=== PATIENT | male | born 1955 | race Caucasian/White ===

== ENCOUNTER 2020-07-29 10:22 | Inpatient (IN) ==
[2020-07-29] MEDS ORDERED: NS 1000 ML 1,000 ML IV STA ×2 (10:41→12:39)
[2020-07-29 10:42] VITALS: BMI 18.6
[2020-07-29] MEDS ORDERED: SOLU-Medrol 125 MG VIAL IVP ONE (10:49)
[2020-07-29] MEDS ORDERED: NS 1000 ML 1,000 ML ONE ×2 (10:50→12:48)
--- NOTE | 2020-07-29 10:56 | DR.GENAD ---
HPI Time Seen Time Seen by Provider: 07/29/20 10:40 HPI Comment HPI Comment: PATIENT WITH A HISTORY OF COPD, END STAGE LIVER FAILURE, COMPLAINS OF GENERALIZED WEAKNESS, PAIN, DYSPNEA WITH A PRODUCTIVE COUGH, YELLOW SPUTUM. DENIES CHEST PAIN, FEVER, NAUSEA, EMESIS AND DIARRHEA. Complaint/Symptoms Chief Complaint Doctors Comments: GENERALIZED WEAKNESS, PRODUCTIVE COUGH, DYSPNEA, GENERALIZED PAIN COVID-19 Coronavirus risk:travel/contact w/high risk person: Yes Has patient experienced Coronavirus symptoms: Yes Coronavirus symptoms experienced: Coughing and Shortness of Breath Source History Provided: Patient and EMS Mode of Arrival Mode of Arrival: EMS Timing Onset of Chief Complaint: 07/27/20 Came on: Gradually Duration Duration: Constant Severity Severity: Moderate (DIFFICULTY BREATHING) Associated Signs and Symptoms Associated Signs and Symptoms: PROGRESSIVE DYSPNEA, COUGH, PMH PMH Past Medical History: COPD Past Surgical History: No Surgical History: Unknown Social History Do you use any recreational Drugs:: No ROS Review of Systems Constitutional: See HPI Eyes: No Symptoms Reported ENTM: No Symptoms Reported Respiratoy: See HPI and Productive Cough Cardiovascular: No Symptoms Reported Gastrointestinal/Abdominal: Abdominal Pain and Nausea Genitourinary: No Symptoms Reported Neurological: See HPI and Weakness Musculoskeletal: No Symptoms Reported Integumentary: No Symptoms Reported Hematologic/Lymphatic: No Symptoms Reported Endocrine: No Symptoms Reported Psychiatric: No Symptoms Reported All Other Systems: Reviewed and Negative PE Vital Signs Vitals: Temperature 98.2 F Pulse Rate 88 Respiratory Rate 15 Blood Pressure 149/71 O2 Sat by Pulse Oximetry 95 General Limitations: Physical Limitation General Appearance: Lethargic Head Head Exam: Normal Inspection and Atraumatic Eyes Eye exam: Normal Appearance and PERRL ENT ENT Exam: Normal Exam and Normal Oropharynx External Ear Exam: Normal External Inspection TM/Canal Exam: Bilateral: Normal Nose Exam: Normal Nose Exam Mouth Exam: Normal Inspection Throat Exam: Normal Inspection Neck Neck Exam: Normal Inspection and Full ROM Chest Chest Inspection: Normal Inspection and Symmetric Chest Wall Rise Respiratory Respiratory Exam: Normal Lung Sounds Bilat Respiratory Exam: Bilateral: Clear to Auscultation Cardiovascular Cardiovascular Exam: Regular Rate and Normal Rhythm Abdominal Exam Abdominal Exam: Normal Inspection, Normal Bowel Sounds and Tenderness (LEFT LOWER QUAD TENDERNESS) Abdominal Tenderness: LLQ Extremities Extremities Exam: Normal Inspection and Full ROM Back Back Exam: Normal Inspection and Full ROM Neurologic Neurological Exam: Oriented X3 and Other (SLIGHTLY LETHARGIC) Psychiatric Psychiatric Exam: Normal Affect and Anxious Skin Skin Exam: Warm, Dry, Intact and Normal Color MDM Differential Diagnosis Differential Diagnosis: PNEUMONIA, COVID, COPD, LIVER DISEASE, SMALL BOWEL OBSTRUCTION COURSE Treatment Treatment: IV NORMAL SALINE 200ML/HR, KCL 10MEQ IVPB OVER 1 HOURS, AFTER 2 SETS OF BLOOD CULTURES, LEVAQUIN 500MG IVPB, Reevaluation 1st: Improved Consultation Call Returned: 14:20 Consultation Comments: DISCUSSED WITH DR MELGOZA AT 1420 FOR ADMISSION ROR Labs Reviewed Laboratory Results Reviewed?: Yes Result Diagrams: 07/29/20 10:50 07/29/20 10:50 Laboratory: WBC 7.2 X10^3/uL (3.6-10.0) 07/29/20 10:50 RBC 4.23 X10^6/uL (4.7-6.0) L 07/29/20 10:50 Hgb 12.5 g/dL (13.5-18.0) L 07/29/20 10:50 Hct 35.6 % (42.0-54.0) L 07/29/20 10:50 MCV 84.2 fL (80.0-100.0) 07/29/20 10:50 MCH 29.6 pg (27.0-34.0) 07/29/20 10:50 MCHC 35.2 g/dL (33.0-35.0) H 07/29/20 10:50 RDW 14.0 % (11.6-16.5) 07/29/20 10:50 Plt Count 262 X10^3/uL (150.0-450.0) 07/29/20 10:50 MPV 7.2 fL (7.4-11.0) L 07/29/20 10:50 Neut % (Auto) 83.0 % (42.0-75.0) H 07/29/20 10:50 Lymph % (Auto) 11.0 % (21.0-51.0) L 07/29/20 10:50 [place] % (Auto) 4.4 % (0.0-13.0) 07/29/20 10:50 Eos % (Auto) 1.0 % (0.9-2.9) 07/29/20 10:50 Baso % (Auto) 0.6 % (0.2-1.0) 07/29/20 10:50 Neut # (Auto) 6.0 x10^3/uL (2.2-4.8) H 07/29/20 10:50 Lymph # (Auto) 0.8 X10^3/uL (1.3-2.9) L 07/29/20 10:50 [place] # (Auto) 0.3 x10^3/uL (0.3-0.8) 07/29/20 10:50 Eos # (Auto) 0.1 x10^3/uL (0.0-0.2) 07/29/20 10:50 Baso # (Auto) 0.0 X10^3/uL (0.0-0.1) 07/29/20 10:50 Absolute Nucleated RBC 0.0 /100WBC 07/29/20 10:50 PT 14.9 SECONDS (11.8-14.3) 07/29/20 10:50 INR Target Range - 07/29/20 10:50 INR 1.21 (0.8-1.3) 07/29/20 10:50 D-Dimer 7.87 ug/ml (0.0-0.57) H* 07/29/20 10:50 Sample Site Right radial 07/29/20 11:19 ABG pH 7.560 (7.35-7.45) H* 07/29/20 11:19 ABG pCO2 42.0 mmHg (35.0-45.0) 07/29/20 11:19 ABG pO2 102.0 mmHg (80.0-100.0) H 07/29/20 11:19 ABG HCO3 37.6 mmol/L (22-26) H* 07/29/20 11:19 ABG O2 Saturation 99.0 % (90-100) 07/29/20 11:19 ABG Base Excess 13.9 mmol/L (-2.0-2.0) H 07/29/20 11:19 [place] Test Pos 07/29/20 11:19 A-a Gradient 74.0 mmHg 07/29/20 11:19 FiO2 32.0 07/29/20 11:19 Blood Gas Comments Lily well aw 07/29/20 11:19 Sodium 120 mmol/L (136-145) L* 07/29/20 10:50 Corrected Sodium 121 mmol/L (136-145) L 07/29/20 10:50 Potassium 2.1 mmol/L (3.5-5.1) L* 07/29/20 10:50 Chloride 81 mmol/L (98-107) L 07/29/20 10:50 Carbon Dioxide 35.5 mmol/L (21-32) H 07/29/20 10:50 BUN 25 mg/dL (7-18) H 07/29/20 10:50 Creatinine 1.12 mg/dL (0.70-1.30) 07/29/20 10:50 Est GFR (MDRD) Af Amer > 60 (>60) 07/29/20 10:50 Est GFR (MDRD) Non-Af > 60 (>60) 07/29/20 10:50 Glucose 126 mg/dL (65-99) H 07/29/20 10:50 Lactic Acid 1.6 mmol/L (0.4-2.0) 07/29/20 10:50 Calcium 8.8 mg/dL (8.5-10.1) 07/29/20 10:50 Corrected Calcium 9.5 mg/dL (8.5-10.1) 07/29/20 10:50 Magnesium 1.8 mg/dL (1.7-2.9) 07/29/20 10:50 Total Bilirubin 1.50 mg/dL (0.2-1.0) H 07/29/20 10:50 AST 27 Units/L (15-37) 07/29/20 10:50 ALT 13 Units/L (12-78) 07/29/20 10:50 Alkaline Phosphatase 92 Units/L (46-116) 07/29/20 10:50 Ammonia 55 umol/L (11-32) H 07/29/20 10:50 Troponin I < 0.02 ng/mL (0-1.5) 07/29/20 10:50 B-Natriuretic Peptide 248 pg/mL (0-79) H 07/29/20 10:50 Total Protein 7.0 g/dL (6.4-8.2) 07/29/20 10:50 Albumin 3.1 g/dL (3.4-5.0) L 07/29/20 10:50 Globulin 3.9 g/dL (2.5-4.5) 07/29/20 10:50 Albumin/Globulin Ratio 0.8 Ratio (1.1-2.1) L 07/29/20 10:50 Amylase 35 Units/L (25-115) 07/29/20 10:50 Lipase 243 Units/L (73-393) 07/29/20 10:50 Specimen Type Catherized urine 07/29/20 13:10 Urine Color Dark yellow (YELLOW) 07/29/20 13:10 Urine Appearance Clear (CLEAR) 07/29/20 13:10 Urine pH 6.0 (5.0 - 8.0) 07/29/20 13:10 Ur Specific [place] 1.010 (1.000-1.030) 07/29/20 13:10 Urine Protein Negative (NEGATIVE) 07/29/20 13:10 Urine Glucose (UA) Negative (NEGATIVE) 07/29/20 13:10 Urine Ketones Negative (NEGATIVE) 07/29/20 13:10 Urine Occult Blood 1+ (NEGATIVE) 07/29/20 13:10 Urine Nitrite Negative (NEGATIVE) 07/29/20 13:10 Urine Bilirubin Negative (NEGATIVE) 07/29/20 13:10 Urine Urobilinogen 2+ (NORMAL) 07/29/20 13:10 Ur Leukocyte Esterase 1+ (NEGATIVE) 07/29/20 13:10 Urine RBC 0-2 /HPF (0-3) 07/29/20 13:10 Urine WBC 0-2 /HPF (0-5) 07/29/20 13:10 Ur Squamous Epith Cells Few /HPF (NEGATIVE) 07/29/20 13:10 Amorphous Sediment 1+ /HPF (NEGATIVE) 07/29/20 13:10 Urine Bacteria Trace /HPF (NEGATIVE) 07/29/20 13:10 Ur Culture Indicated? No/not indicated 07/29/20 13:10 Urine Opiates Screen Negative (NEG=<300) 07/29/20 13:10 Urine Methadone Screen Negative (NEG=<300) 07/29/20 13:10 Ur Barbiturates Screen Negative (NEG=<200) 07/29/20 13:10 Ur Phencyclidine Scrn Negative (NEG=<25) 07/29/20 13:10 Ur Amphetamines Screen Negative (NEG=<1000) 07/29/20 13:10 U Benzodiazepines Scrn Positive (NEG=<200) 07/29/20 13:10 Urine Cocaine Screen Negative (NEG=<300) 07/29/20 13:10 U Marijuana (THC) Screen Negative (NEG=<50) 07/29/20 13:10 Ethyl Alcohol mg/dL < 3 mg/dL (0-19.9) 07/29/20 10:50 SARS CoV-2 RNA Rapid ZOË Negative (NEGATIVE) 07/29/20 11:27 Other Results Comments: DISCUSSED ALL LAB RESULTS AND CT FINDINGS WITH PATIENT AND FAMILY XRAY XRAY Interpreted by: Radiologist (CTA OF CHEST NEGATIVE FOR PULMONARY EMBOLISM, MODERATE EMPHYSEMA, RIGHT LOWER LOBE CONSOLIDATION, ABDOMINAL PELVIS CT CONSISTENT WITH MODERAT ASCITES, PROMINENT URINARY BLADDER WITHOUT WALL THICKENING, BILATERAL HYDRONEPHROSIS, PROBABLE CIRRHOSIS) EKG Rate: 84 [place]: Normal Rhythm: NSR Block: None ST: Nonsp Opioid Opioid Risk Tool Age (Heath box if 16-45): No History of Preadolescent Sexual Abuse: No Total: 0 Total Score Risk Category: Low Risk Copyright: Geoffrey OLMOS predicting aberrant behaviors Diagnosis Discharge Problem: Pneumonia, Acute hyponatremia, Acute hypokalemia, Alcoholic liver disease
[2020-07-29] MEDS ORDERED: SOLU-Medrol 125 MG VIAL ONE (11:01)
[2020-07-29] MEDS ORDERED: ZOFRAN INJ 4 MG VIAL IVP STA (11:20)
[2020-07-29 11:25] LABS: ABG BASE EXCESS 13.9 mmol/L (-2.0-2.0)
[2020-07-29 11:27] LABS: ABG ALLEN TEST POS; ABG HCO3 37.6 mmol/L (22-26)
[2020-07-29 11:32] LABS: BASOPHILS % (AUTO) 0.6 % (0.2-1.0); EOSINOPHILS # (AUTO) 0.1 x10^3/uL (0.0-0.2); HEMATOCRIT 35.6 % (42.0-54.0); HEMOGLOBIN 12.5 g/dL (13.5-18.0); LYMPHOCYTES # (AUTO) 0.8 X10^3/uL (1.3-2.9); MEAN CORPUSCULAR HEMOGLOBIN 29.6 pg (27.0-34.0); MEAN CORPUSCULAR HGB CONC 35.2 g/dL (33.0-35.0); MEAN CORPUSCULAR VOLUME 84.2 fL (80.0-100.0); MEAN PLATELET VOLUME 7.2 fL (7.4-11.0); MONOCYTES # (AUTO) 0.3 x10^3/uL (0.3-0.8); MONOCYTES % (AUTO) 4.4 % (0.0-13.0); PLATELET COUNT 262 X10^3/uL (150.0-450.0); RED BLOOD COUNT 4.23 X10^6/uL (4.7-6.0); WHITE BLOOD COUNT 7.2 X10^3/uL (3.6-10.0)
[2020-07-29] MEDS ORDERED: ZOFRAN INJ 4 MG VIAL ONE (11:34)
[2020-07-29 11:52] LABS: ALANINE AMINOTRANSFERASE 13 Units/L (12-78); ALBUMIN 3.1 g/dL (3.4-5.0); ALKALINE PHOSPHATASE 92 Units/L (46-116); AMYLASE 35 Units/L (25-115); ASPARTATE AMINO TRANSFERASE 27 Units/L (15-37); BLOOD UREA NITROGEN 25 mg/dL (7-18); CALCIUM 8.8 mg/dL (8.5-10.1); CARBON DIOXIDE 35.5 mmol/L (21-32); CHLORIDE 81 mmol/L (98-107); COR CA(FOR HYPOALB) 9.5 mg/dL (8.5-10.1); COR NA(FOR HYPERGLY) 121 mmol/L (136-145); CREATININE 1.12 mg/dL (0.70-1.30); LACTIC ACID 1.6 mmol/L (0.4-2.0); LIPASE 243 Units/L (73-393); TROPONIN I < 0.02 ng/mL (0-1.5); eGFR NON BLACK RACES > 60 (>60)
[2020-07-29 11:55] LABS: SODIUM 120 mmol/L (136-145)
[2020-07-29 11:58] LABS: AMMONIA 55 umol/L (11-32)
[2020-07-29] MEDS ORDERED: POTASSIUM CHLORIDE 10 MEQ IV STA (12:17)
[2020-07-29] MEDS ORDERED: CHRONULAC PO STA (12:21)
[2020-07-29] MEDS ORDERED: NS 100 ML IV 100 ML IV ONE (12:34)
--- NOTE | 2020-07-29 13:07 | RAD ---
HISTORYCough, dyspneaSTUDYChest AP [id number]/2021FINDINGSThe heart is within normal limits in size. The laine are normal. The lungs are well inflated. There are some emphysematous changes in the upper lobes. There is bibasilar subsegmental atelectasis present. No infiltrates are identified. Bony thorax is unremarkable.IMPRESSIONEmphysematous changes in the upper lobesBibasilar subsegmental atelectasisAcute infiltratesElectronically signed by: SOHAIL REDDY (Jul 29, 2020 13:04:36)
[2020-07-29] MEDS ORDERED: CHRONULAC ONE ×2 (13:14→19:38)
--- NOTE | 2020-07-29 13:16 | CT ---
HISTORYPT. WAS BROUGHT IN PER [facility]. EMS WITH C/O SHORTNESS OF BREATH, DECREASED APPETITIE AND WEAKNESS. UPON ARRIVAL TO THE ER, PT. IS LETHARGIC. PT. C/O GENERALIZED PAIN. PT. EMACIATED. ELEVATED D-DIMERSTUDYCT ABDOMEN/PELVIS with IV contrastCOMPARISONNoneTECHNIQUEMultiple axial images of the abdomen and pelvis were obtained from the lung bases to the pubic symphysis after the administration of IV contrast. 100 cc Omnipaque 350 IV contrast. Dose reduction techniques including Automated Exposure Control (AEC) and adjustment of mA and kV were utilized.FINDINGSThe visualized portions of the lung bases reveal infiltrates, right greater than left. Associated air bronchograms are seen on the right. Findings may represent atelectasis but consideration should be given to right lower lobe pneumonia, also.Probable cirrhosis. Spleen is top normal limits in size.Probable mild cholelithiasis. Gallbladder wall appears mildly thickened but this could be artifactual from ascites. No biliary ductal dilation.No pancreatic abnormality is seen.Right adrenal gland appears normal. There is 2.5 x 1.0 cm nodule in the left adrenal gland. This is indeterminate for malignancy. Correlation with MRI is recommended.Likely mild hydronephrosis is present bilaterally. No renal or ureteral stones are seen. Hydronephrosis is probably from the prominent dilation of the urinary bladder. Bladder measures 13.5 x 27.0 x 13.3 cm. There appears to be a possible catheter in the prostatic urethra. Passage of catheter into the urinary bladder is recommended. No bladder wall thickening is seen. Prostate gland appears normal in size.No constipation or bowel obstruction. Consider possible gastroenteritis changes but appearance may be artifactual from the ascites. Probable normal appendix is seen.No abnormalities are seen of the reproductive organs.Distal abdominal aorta is mildly dilated measuring 2.7 cm in diameter. Diffuse atherosclerotic calcifications are seen. Possible hemodynamically significant stenoses are seen in the external iliac arteries.No suspicious lymphadenopathy.Prominent ascites is seen.Likely old unhealed fractures of the left transverse processes of L2 and L3.IMPRESSIONProminent dilation of the urinary bladder without wall thickening. Chisholm catheter should be passed into the urinary bladder. Consider possible neurogenic bladder.Bilateral hydronephrosis is likely from reflux due to the distended urinary bladder.2.5 x 1.0 cm left adrenal nodule is indeterminate for malignancy. Appears to have soft tissue density. Further evaluation with MRI is recommended.Likely bibasilar atelectasis in the lung bases but right lower lobe pneumonia is not excluded.Possible hemodynamically significant stenoses are seen in the external iliac arteries.Electronically signed by: Ziggy Winetr (Jul 29, 2020 13:14:58)
--- NOTE | 2020-07-29 13:17 | CT ---
HISTORYPT. WAS BROUGHT IN PER [facility]. EMS WITH C/O SHORTNESS OF BREATH, DECREASED APPETITIE AND WEAKNESS. UPON ARRIVAL TO THE ER, PT. IS LETHARGIC. PT. C/O GENERALIZED PAIN. PT. EMACIATED, ELEVATED D-DIMERSTUDYCTA [id number]/22/2021 radiograph.TECHNIQUECTA chest protocol with axial images from the thoracic inlet to upper abdomen with IV contrast. Sagittal and coronal reformats and MIP images were created. Automated exposure control was utilized.FINDINGSThe visualized thyroid gland appears benign. Moderately atherosclerotic normal caliber thoracic aorta. Suboptimal opacification of the aorta to exclude injury. The pulmonary arteries are well opacified. Pulmonary artery is normal in caliber centrally. No filling defect is identified to suggest pulmonary embolism. The heart is normal in size. No significant pericardial effusion. Severe coronary artery calcifications. Moderate to large volume ascites in the upper abdomen. No acute osseous abnormality. The trachea appears patent. There is debris in the right worse than left mainstem bronchi, for example image 85 series 4 in the distal right mainstem bronchus. Moderate emphysematous change. There are scattered less than 4 mm axial dimension pulmonary nodules. Right lower lobe consolidation. Left lower lobe opacities are mainly linear suggesting subsegmental atelectasis or scar. No pleural effusion or pneumothorax.IMPRESSIONNegative for pulmonary embolism. Moderate emphysema. Right lower lobe consolidation. Debris in the mainstem bronchi, particularly on the right, suggests aspiration pneumonia.Moderate to large volume ascites.Electronically signed by: Jeffrey Garrett (Jul 29, 2020 13:16:30)
[2020-07-29 13:29] LABS: BILIRUBIN,URINE NEGATIVE (NEGATIVE); BLOOD/HEMOGLOBIN,URINE 1+ (NEGATIVE); GLUCOSE, URINE NEGATIVE (NEGATIVE); KETONES,URINE NEGATIVE (NEGATIVE); LEUKOCYTE ESTERASE ,URINE 1+ (NEGATIVE); NITRITES,URINE NEGATIVE (NEGATIVE); PROTEIN,URINE NEGATIVE (NEGATIVE); UROBILINOGEN,URINE 2+ (NORMAL)
[2020-07-29 13:52] LABS: AMORPHOUS SEDIMENT,UR 1+ /HPF (NEGATIVE); APPEARANCE,URINE CLEAR (CLEAR); BACTERIA,URINE TRACE /HPF (NEGATIVE); COLOR,URINE DARK YELLOW (YELLOW); RBC,URINE 0-2 /HPF (0-3); SQUAMOUS EPITHELIAL CELL,UR FEW /HPF (NEGATIVE)
[2020-07-29] MEDS ORDERED: K-RIDER 10 MEQ/NS 100 ML 10 MEQ/100 ML BAG IV ONE ×2 (15:40→15:41)
[2020-07-29] MEDS ORDERED: BUTT CREAM (COMPOUND) TOP PRN (17:40)
[2020-07-29] MEDS: DUONEB 0.5 MG/3 MG (3 mL) NEB SCH ×2 (17:55→20:15)
[2020-07-29] MEDS: K-RIDER 10 MEQ/NS 100 ML 10 MEQ/100 ML BAG IV SCH ×3 (19:07→20:21)
[2020-07-29] MEDS ORDERED: K-RIDER 10 MEQ/NS 100 ML 10 MEQ/100 ML BAG IV PRN (19:18)
[2020-07-29] MEDS ORDERED: POTASSIUM CHLORIDE LIQ 20 MEQ UDC PO PRN (19:18)
[2020-07-29] MEDS ORDERED: MICRO K EXTEN CAP 10 MEQ PO PRN (19:18)
[2020-07-29] MEDS ORDERED: POTASSIUM CHL 40 MEQ/NS 0.45% 500 ML IV PRN (19:18)
[2020-07-29] MEDS ORDERED: POTASSIUM CHL 60 MEQ/NS 0.45% 500 ML IV PRN (19:18)
[2020-07-29] MEDS ORDERED: KLOR-CON PO PRN (19:18)
[2020-07-29] MEDS ORDERED: NS 500 ML IV 500 ML IV ONE (19:39)
[2020-07-29 19:53] LABS: BLOOD UREA NITROGEN 19 mg/dL (7-18); CALCIUM 8.7 mg/dL (8.5-10.1); CARBON DIOXIDE 34.8 mmol/L (21-32); CHLORIDE 88 mmol/L (98-107); COR NA(FOR HYPERGLY) 129 mmol/L (136-145); CREATININE 0.89 mg/dL (0.70-1.30); SODIUM 126 mmol/L (136-145); eGFR NON BLACK RACES > 60 (>60)
[2020-07-29] MEDS: PULMICORT NEB TX 0.5 MG NEB SCH (20:15)
[2020-07-29] MEDS: NEURONTIN CAP 100 MG PO PRN (20:18)
[2020-07-29] MEDS ORDERED: PATIENT'S HOME MEDICATION (Fluticasone-Umeclidin-Vilanter [Trelegy Ellipta] 100-62.5-25 mc IN SCH (21:00)
[2020-07-29] MEDS: CHRONULAC PO SCH (21:04)
[2020-07-29] MEDS: MAGNESIUM SULFATE 1 GRAM/100 mL PREMIX 1 GM/100 ML BAG IV PRN (23:04)
[2020-07-30] MEDS: MAGNESIUM SULFATE 1 GRAM/100 mL PREMIX 1 GM/100 ML BAG IV PRN (00:28)
[2020-07-30] MEDS: NEURONTIN CAP 100 MG PO PRN (03:49)
[2020-07-30] MEDS: CHRONULAC PO SCH ×3 (06:14→22:07)
[2020-07-30 06:25] LABS: BASOPHILS % (AUTO) 0.4 % (0.2-1.0); EOSINOPHILS % (AUTO) 0.1 % (0.9-2.9); HEMATOCRIT 32.6 % (42.0-54.0); HEMOGLOBIN 11.3 g/dL (13.5-18.0); LYMPHOCYTES # (AUTO) 0.8 X10^3/uL (1.3-2.9); LYMPHOCYTES % (AUTO) 11.5 % (21.0-51.0); MEAN CORPUSCULAR HEMOGLOBIN 29.3 pg (27.0-34.0); MEAN CORPUSCULAR HGB CONC 34.6 g/dL (33.0-35.0); MEAN CORPUSCULAR VOLUME 84.8 fL (80.0-100.0); MEAN PLATELET VOLUME 7.5 fL (7.4-11.0); MONOCYTES # (AUTO) 0.5 x10^3/uL (0.3-0.8); MONOCYTES % (AUTO) 6.8 % (0.0-13.0); NEUTROPHILS # (AUTO) 5.8 x10^3/uL (2.2-4.8); NEUTROPHILS % (AUTO) 81.2 % (42.0-75.0); PLATELET COUNT 219 X10^3/uL (150.0-450.0); RED BLOOD COUNT 3.85 X10^6/uL (4.7-6.0); RED CELL DISTRIBUTION WIDTH 13.7 % (11.6-16.5); WHITE BLOOD COUNT 7.2 X10^3/uL (3.6-10.0)
[2020-07-30 06:40] LABS: ALANINE AMINOTRANSFERASE 16 Units/L (12-78); ALBUMIN 2.7 g/dL (3.4-5.0); ALKALINE PHOSPHATASE 87 Units/L (46-116); ASPARTATE AMINO TRANSFERASE 26 Units/L (15-37); BLOOD UREA NITROGEN 19 mg/dL (7-18); CALCIUM 8.9 mg/dL (8.5-10.1); CARBON DIOXIDE 33.1 mmol/L (21-32); CHLORIDE 88 mmol/L (98-107); COR CA(FOR HYPOALB) 9.9 mg/dL (8.5-10.1); COR NA(FOR HYPERGLY) 129 mmol/L (136-145); CREATININE 0.78 mg/dL (0.70-1.30); SODIUM 127 mmol/L (136-145); TOTAL PROTEIN 6.4 g/dL (6.4-8.2); eGFR NON BLACK RACES > 60 (>60)
[2020-07-30] MEDS: PULMICORT NEB TX 0.5 MG NEB SCH ×2 (08:32→21:34)
[2020-07-30] MEDS: DUONEB 0.5 MG/3 MG (3 mL) NEB SCH ×4 (08:32→21:34)
[2020-07-30] MEDS: NS + KCL 20 MEQ/L 1,000 ML IV SCH ×2 (08:47→20:59)
[2020-07-30] MEDS: LEVAQUIN PREMIX IV 500 MG 500 MG/100 ML BAG IV SCH (08:47)
[2020-07-30] MEDS ORDERED: PriLOSEC PO SCH (09:00)
--- NOTE | 2020-07-30 13:08 | RAD ---
HISTORYCOUGH, COPDSTUDYCHEST x-ray, 1 VIEWCOMPARISONCTA 07/29/2020FINDINGSThe trachea is midline. Patient is lordotic in positioning. The cardiac silhouette is unremarkable .Lungs appear hyperinflated suggesting COPD. No evidence of pneumonia. Infiltrative densities at the CP angles is seen on prior CT are not seen on this study. No pneumothorax or pleural effusion is seen.No acute bony abnormality is seen.IMPRESSIONCOPD without evidence of pneumonia. The infiltrative densities seen on prior CT may be obscured due to the diaphragm given their location.Electronically signed by: Ziggy Winter (Jul 30, 2020 13:06:59)
--- NOTE | 2020-07-30 14:00 | DR.H&P ---
H&P - History & Physical for Day of: H&P Date: 07/29/20 - Chief Complaint Chief Complaint: LIVER FAILURE, N/V, WEAKNESS, SOB - History of Present Illness History of Present Illness: PATIENT WITH A HISTORY OF COPD, END STAGE LIVER FAILURE, COMPLAINS OF GENERALIZED WEAKNESS, PAIN, DYSPNEA WITH A PRODUCTIVE COUGH, YELLOW SPUTUM. DENIES CHEST PAIN, FEVER, NAUSEA, EMESIS AND DIARRHEA. PT REPORTS HE IS DAILY ETOH DRINKER, LAST WAS ON WEDNESDAY PRIOR TO ADMISSION. PT REPORTS PREVIOUS SMOKER, NO KNOWN CARDIAC HISTORY. PREVIOUS HEART CATH X2 WITHOUT INTERVENTION REQUIRED. 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 - Past Surgical History Surgical History: Appendectomy, Other - Family History Family Medical History: Diabetes Mellitus - Social History Does patient currently use any type of tobacco product: No Have you used tobacco products in the last 12 months: No Type of Tobacco Use: Cigarettes How many years tobacco product used: 40 Does any household member use tobacco: No Alcohol Use: Heavy, DAILY Drug Use: None - Medications Home Medications: cefuroxime [From Ceftin] Allergy (Mild, Verified 07/21/20 10:00) CONTINUE taking the following medications temazepam 30 mg PO HS 07/29/20 [History] - Review of Systems Constitutional: Weakness Eyes: No Symptoms Reported ENT: No Symptoms Reported Respiratory: SOB with Excertion Cardiovascular: No Symptoms Reported Gastrointestinal: Nausea, Vomiting, Abdominal Pain, Diarrhea Genitourinary: No Symptoms Reported Musculoskeletal: No Symptoms Reported Skin: No Symptoms Reported Neurological: Weakness - Physical Exam Vital Signs: Temperature 98.1 F Pulse Rate [Right Brachial] 101 Pulse Rate 78 Respiratory Rate 20 Blood Pressure [Right Arm] 105/56 Blood Pressure 139/84 O2 Sat by Pulse Oximetry 95 Oriented: Normal Eyes: Normal Ear: Normal Nose: Normal Throat: Normal Respiratory: RLL Diminished, LLL Diminished Cardiovascular: Normal : Normal Auscultation: Bowel Sounds: Normal Palpation: Liver Enlarged Tenderness: Diffuse Skin: Decreased Turgur, Wound (BILATERAL HEALS) Musculoskeletal: Back:Lumbar, Motor Deficit Psychiatric: Anxiety Mood Description: Anxious Affect: Anxious Speech Pattern: Appropriate, Delayed - Assessment/Plan (1) Pneumonia Status: Acute Plan: ADMIT, RESP THERAPY. SPUTUM CULTURE, IV ATBX. IV HYDRATION, WITHDRAWAL PRECAUTIONS. POTASSIUM, SODIUM REPLACEMENT, AMMONIA LEVEL. STRICT I &OS (2) Hyponatremia Status: Acute (3) Hypokalemia Status: Acute (4) Ascites Status: Acute (5) Alcoholic liver disease Status: Acute - Allergies Allergies/Adverse Reactions: Allergies Allergy/AdvReac Type Severity Reaction Status Date / Time cefuroxime [From Ceftin] Allergy Mild Verified 07/21/20 10:00
[2020-07-30] MEDS: PROTONIX INJ 40 MG VIAL IVP SCH (14:21)
[2020-07-31] MEDS: CHRONULAC PO SCH ×3 (05:35→22:15)
[2020-07-31 06:06] LABS: BASOPHILS % (AUTO) 0.4 % (0.2-1.0); EOSINOPHILS % (AUTO) 0.4 % (0.9-2.9); HEMATOCRIT 32.9 % (42.0-54.0); HEMOGLOBIN 11.3 g/dL (13.5-18.0); LYMPHOCYTES # (AUTO) 0.8 X10^3/uL (1.3-2.9); LYMPHOCYTES % (AUTO) 10.7 % (21.0-51.0); MEAN CORPUSCULAR HEMOGLOBIN 29.3 pg (27.0-34.0); MEAN CORPUSCULAR HGB CONC 34.4 g/dL (33.0-35.0); MEAN CORPUSCULAR VOLUME 85.2 fL (80.0-100.0); MEAN PLATELET VOLUME 7.2 fL (7.4-11.0); MONOCYTES # (AUTO) 0.5 x10^3/uL (0.3-0.8); MONOCYTES % (AUTO) 7.6 % (0.0-13.0); NEUTROPHILS # (AUTO) 5.8 x10^3/uL (2.2-4.8); NEUTROPHILS % (AUTO) 80.9 % (42.0-75.0); PLATELET COUNT 230 X10^3/uL (150.0-450.0); RED BLOOD COUNT 3.86 X10^6/uL (4.7-6.0); RED CELL DISTRIBUTION WIDTH 14.1 % (11.6-16.5); WHITE BLOOD COUNT 7.1 X10^3/uL (3.6-10.0)
[2020-07-31 06:40] LABS: ALANINE AMINOTRANSFERASE 15 Units/L (12-78); ALBUMIN 2.5 g/dL (3.4-5.0); ALKALINE PHOSPHATASE 78 Units/L (46-116); ASPARTATE AMINO TRANSFERASE 30 Units/L (15-37); BLOOD UREA NITROGEN 12 mg/dL (7-18); CALCIUM 8.3 mg/dL (8.5-10.1); CARBON DIOXIDE 32.3 mmol/L (21-32); CHLORIDE 92 mmol/L (98-107); COR CA(FOR HYPOALB) 9.5 mg/dL (8.5-10.1); COR NA(FOR HYPERGLY) 130 mmol/L (136-145); CREATININE 0.64 mg/dL (0.70-1.30); MAGNESIUM 1.2 mg/dL (1.7-2.9); SODIUM 130 mmol/L (136-145); TOTAL PROTEIN 5.9 g/dL (6.4-8.2); eGFR NON BLACK RACES > 60 (>60)
[2020-07-31 06:53] LABS: BAND NEUTROPHILS % 1 % (0-10); PLATELET MORPHOLOGY COMMENT NORMAL (NORMAL)
[2020-07-31] MEDS: PULMICORT NEB TX 0.5 MG NEB SCH ×2 (08:30→20:15)
[2020-07-31] MEDS: DUONEB 0.5 MG/3 MG (3 mL) NEB SCH ×4 (08:30→20:15)
--- NOTE | 2020-07-31 09:15 | VAS ---
HISTORYELEVATED DDIMERSTUDYBilateral lower extremity venous ultrasoundCOMPARISONNoneFINDINGSUltrasound evaluation of the deep venous system of both legs was perf ormed from the level of the inguinal ligament down to the calf. On both sides, the deep system is wid shanda patent with good flow and compressibility noted along their course. No evidence of intraluminal t hrombus is seen in either leg.IMPRESSIONNo deep vein thrombosis is identified in either lower extremi ty.Electronically signed by: ALBIN HERNANDEZ (Jul 31, 2020 09:13:33)
[2020-07-31] MEDS: LEVAQUIN PREMIX IV 500 MG 500 MG/100 ML BAG IV SCH (09:18)
[2020-07-31] MEDS: PROTONIX INJ 40 MG VIAL IVP SCH (09:19)
[2020-07-31] MEDS: NS + KCL 20 MEQ/L 1,000 ML IV SCH (09:20)
[2020-07-31] MEDS: ZOLOFT PO SCH (09:20)
[2020-07-31] MEDS: MAGNESIUM SULFATE 1 GRAM/100 mL PREMIX 1 GM/100 ML BAG IV PRN ×4 (10:19→16:34)
[2020-07-31] MEDS ORDERED: FLEET ENEMA ADULT PR ONE (10:20)
[2020-07-31 10:45] LABS: ABG BASE EXCESS 12.5 mmol/L (-2.0-2.0)
[2020-07-31 10:46] LABS: ABG ALLEN TEST POS; ABG HCO3 35.8 mmol/L (22-26)
[2020-07-31] MEDS: LOVENOX INJ 30 MG SYR SC SCH ×2 (11:28→21:10)
--- NOTE | 2020-07-31 11:50 | DR.PROGNOT ---
Hospital Progress Notes - Progress Note for Day of: Progress Note Date: 07/31/20 - Chief Complaint Chief Complaint: no abdomial pain today . . constipated . D Dimer was elevated 11.6 . WBC 7.1 .. Hgb 11.3.. Platelet 230. . Albumin 2.5 .. afebrile .. - Past Medical Family Social History Past Med/Fam/Surg Hx: No changes since H&P Allergies: Allergies cefuroxime [From Ceftin] Allergy (Mild, Verified 07/21/20 10:00) - Review Of Systems ROS: No change since H&P - Vital Signs Vital Signs: Temperature 99.0 F Pulse Rate [Right Brachial] 103 Pulse Rate 70 Respiratory Rate 18 Blood Pressure [Right Arm] 120/67 Blood Pressure 139/84 O2 Sat by Pulse Oximetry 93 - Physical Exam Oriented: Normal Eyes: Normal Ear: Normal Nose: Normal Throat: Normal Cardiovascular: Normal : Normal GI:Auscultation: Normal GI:Palpation: Liver Enlarged GI: Tenderness: Other (moderate distention with tympanic mid and upper abdomen .. ascites lower abdomen .) Skin: Decreased Turgur, Wound (BILATERAL HEALS) Musculoskeletal: Back:Lumbar, Motor Deficit Psychiatric: Anxiety Mood Description: Anxious Affect: Anxious Speech Pattern: Clear, Appropriate - Laboratory and Diagnostics Result Diagrams: 07/31/20 05:39 07/31/20 05:39 Labs: 07/29/20 20:42 Sputum - Expectorated Sputum Sputum Culture - Preliminary 07/29/20 20:42 Sputum - Expectorated Sputum - Final Laboratory WBC 7.1 X10^3/uL (3.6-10.0) 07/31/20 05:39 RBC 3.86 X10^6/uL (4.7-6.0) L 07/31/20 05:39 Hgb 11.3 g/dL (13.5-18.0) L 07/31/20 05:39 Hct 32.9 % (42.0-54.0) L 07/31/20 05:39 MCV 85.2 fL (80.0-100.0) 07/31/20 05:39 MCH 29.3 pg (27.0-34.0) 07/31/20 05:39 MCHC 34.4 g/dL (33.0-35.0) 07/31/20 05:39 RDW 14.1 % (11.6-16.5) 07/31/20 05:39 Plt Count 230 X10^3/uL (150.0-450.0) 07/31/20 05:39 Plt Count Comment Adequate (ADEQUATE) 07/31/20 05:39 MPV 7.2 fL (7.4-11.0) L 07/31/20 05:39 Neut % (Auto) 80.9 % (42.0-75.0) H 07/31/20 05:39 Lymph % (Auto) 10.7 % (21.0-51.0) L 07/31/20 05:39 [place] % (Auto) 7.6 % (0.0-13.0) 07/31/20 05:39 Eos % (Auto) 0.4 % (0.9-2.9) L 07/31/20 05:39 Baso % (Auto) 0.4 % (0.2-1.0) 07/31/20 05:39 Neut # (Auto) 5.8 x10^3/uL (2.2-4.8) H 07/31/20 05:39 Lymph # (Auto) 0.8 X10^3/uL (1.3-2.9) L 07/31/20 05:39 [place] # (Auto) 0.5 x10^3/uL (0.3-0.8) 07/31/20 05:39 Eos # (Auto) 0.0 x10^3/uL (0.0-0.2) 07/31/20 05:39 Baso # (Auto) 0.0 X10^3/uL (0.0-0.1) 07/31/20 05:39 Absolute Nucleated RBC 0.0 /100WBC 07/31/20 05:39 Total Counted 100 07/31/20 05:39 Neutrophils % (Manual) 86 % (39-76) H 07/31/20 05:39 Band Neutrophils % 1 % (0-10) 07/31/20 05:39 Lymphocytes % (Manual) 10 % (13-43) L 07/31/20 05:39 Monocytes % (Manual) 3 % (4-9) L 07/31/20 05:39 Plt Morphology Comment Normal (NORMAL) 07/31/20 05:39 RBC Morphology Normal (NORMAL) 07/31/20 05:39 PT 15.0 SECONDS (11.8-14.3) 07/31/20 05:39 INR Target Range - 07/31/20 05:39 INR 1.22 (0.8-1.3) 07/31/20 05:39 D-Dimer 11.60 ug/ml (0.0-0.57) H* 07/31/20 05:39 Sample Site Rrad 07/31/20 10:35 ABG pH 7.560 (7.35-7.45) H* 07/31/20 10:35 ABG pCO2 40.0 mmHg (35.0-45.0) 07/31/20 10:35 ABG pO2 50.0 mmHg (80.0-100.0) L 07/31/20 10:35 ABG HCO3 35.8 mmol/L (22-26) H* 07/31/20 10:35 ABG O2 Saturation 90.0 % (90-100) 07/31/20 10:35 ABG Base Excess 12.5 mmol/L (-2.0-2.0) H 07/31/20 10:35 [place] Test Pos 07/31/20 10:35 A-a Gradient 50.0 mmHg 07/31/20 10:35 FiO2 21.0 07/31/20 10:35 Blood Gas Comments Pt nancy well elj 07/31/20 10:35 Sodium 130 mmol/L (136-145) L 07/31/20 05:39 Corrected Sodium 130 mmol/L (136-145) L 07/31/20 05:39 Potassium 3.5 mmol/L (3.5-5.1) 07/31/20 05:39 Chloride 92 mmol/L (98-107) L 07/31/20 05:39 Carbon Dioxide 32.3 mmol/L (21-32) H 07/31/20 05:39 BUN 12 mg/dL (7-18) 07/31/20 05:39 Creatinine 0.64 mg/dL (0.70-1.30) L 07/31/20 05:39 Est GFR (MDRD) Af Amer > 60 (>60) 07/31/20 05:39 Est GFR (MDRD) Non-Af > 60 (>60) 07/31/20 05:39 Glucose 113 mg/dL (65-99) H 07/31/20 05:39 Lactic Acid 1.6 mmol/L (0.4-2.0) 07/29/20 10:50 Calcium 8.3 mg/dL (8.5-10.1) L 07/31/20 05:39 Corrected Calcium 9.5 mg/dL (8.5-10.1) 07/31/20 05:39 Magnesium 1.2 mg/dL (1.7-2.9) L 07/31/20 05:39 Total Bilirubin 0.80 mg/dL (0.2-1.0) 07/31/20 05:39 AST 30 Units/L (15-37) 07/31/20 05:39 ALT 15 Units/L (12-78) 07/31/20 05:39 Alkaline Phosphatase 78 Units/L (46-116) 07/31/20 05:39 Ammonia 55 umol/L (11-32) H 07/29/20 10:50 Troponin I < 0.02 ng/mL (0-1.5) 07/29/20 10:50 B-Natriuretic Peptide 160 pg/mL (0-79) H 07/31/20 05:39 Total Protein 5.9 g/dL (6.4-8.2) L 07/31/20 05:39 Albumin 2.5 g/dL (3.4-5.0) L 07/31/20 05:39 Globulin 3.4 g/dL (2.5-4.5) 07/31/20 05:39 Albumin/Globulin Ratio 0.7 Ratio (1.1-2.1) L 07/31/20 05:39 Amylase 35 Units/L (25-115) 07/29/20 10:50 Lipase 243 Units/L (73-393) 07/29/20 10:50 Specimen Type Catherized urine 07/29/20 13:10 Urine Color Dark yellow (YELLOW) 07/29/20 13:10 Urine Appearance Clear (CLEAR) 07/29/20 13:10 Urine pH 6.0 (5.0 - 8.0) 07/29/20 13:10 Ur Specific [place] 1.010 (1.000-1.030) 07/29/20 13:10 Urine Protein Negative (NEGATIVE) 07/29/20 13:10 Urine Glucose (UA) Negative (NEGATIVE) 07/29/20 13:10 Urine Ketones Negative (NEGATIVE) 07/29/20 13:10 Urine Occult Blood 1+ (NEGATIVE) 07/29/20 13:10 Urine Nitrite Negative (NEGATIVE) 07/29/20 13:10 Urine Bilirubin Negative (NEGATIVE) 07/29/20 13:10 Urine Urobilinogen 2+ (NORMAL) 07/29/20 13:10 Ur Leukocyte Esterase 1+ (NEGATIVE) 07/29/20 13:10 Urine RBC 0-2 /HPF (0-3) 07/29/20 13:10 Urine WBC 0-2 /HPF (0-5) 07/29/20 13:10 Ur Squamous Epith Cells Few /HPF (NEGATIVE) 07/29/20 13:10 Amorphous Sediment 1+ /HPF (NEGATIVE) 07/29/20 13:10 Urine Bacteria Trace /HPF (NEGATIVE) 07/29/20 13:10 Ur Culture Indicated? No/not indicated 07/29/20 13:10 Urine Opiates Screen Negative (NEG=<300) 07/29/20 13:10 Urine Methadone Screen Negative (NEG=<300) 07/29/20 13:10 Ur Barbiturates Screen Negative (NEG=<200) 07/29/20 13:10 Ur Phencyclidine Scrn Negative (NEG=<25) 07/29/20 13:10 Ur Amphetamines Screen Negative (NEG=<1000) 07/29/20 13:10 U Benzodiazepines Scrn Positive (NEG=<200) 07/29/20 13:10 Urine Cocaine Screen Negative (NEG=<300) 07/29/20 13:10 U Marijuana (THC) Screen Negative (NEG=<50) 07/29/20 13:10 Ethyl Alcohol mg/dL < 3 mg/dL (0-19.9) 07/29/20 10:50 SARS CoV-2 RNA Rapid ZOË Negative (NEGATIVE) 07/29/20 11:27 - Assessment and Plan 1: moderate ascites ( no need for paracentesis . ). Alcohol abuse and Alcoholic scirrosis . pneumonia . high D Dimer . same plan . - Problem Patient Problems: Patient Problems Hyponatremia (Acute) E87.1 Hypokalemia (Acute) E87.6 Ascites (Acute) R18.8 Pneumonia (Acute) J18.9 Acute hyponatremia (Acute) E87.1 Acute hypokalemia (Acute) E87.6 Alcoholic liver disease (Acute) K70.9
[2020-08-01] MEDS: NS + KCL 20 MEQ/L 1,000 ML IV SCH ×3 (02:24→20:29)
[2020-08-01] MEDS: CHRONULAC PO SCH ×3 (06:01→21:30)
[2020-08-01 06:09] LABS: BASOPHILS # (AUTO) 0.1 X10^3/uL (0.0-0.1); BASOPHILS % (AUTO) 1.3 % (0.2-1.0); EOSINOPHILS # (AUTO) 0.2 x10^3/uL (0.0-0.2); EOSINOPHILS % (AUTO) 2.4 % (0.9-2.9); HEMOGLOBIN 12.1 g/dL (13.5-18.0); LYMPHOCYTES # (AUTO) 0.9 X10^3/uL (1.3-2.9); LYMPHOCYTES % (AUTO) 13.7 % (21.0-51.0); MEAN CORPUSCULAR HEMOGLOBIN 29.3 pg (27.0-34.0); MEAN CORPUSCULAR HGB CONC 34.5 g/dL (33.0-35.0); MEAN CORPUSCULAR VOLUME 84.9 fL (80.0-100.0); MEAN PLATELET VOLUME 7.5 fL (7.4-11.0); MONOCYTES # (AUTO) 0.6 x10^3/uL (0.3-0.8); MONOCYTES % (AUTO) 9.7 % (0.0-13.0); NEUTROPHILS # (AUTO) 4.7 x10^3/uL (2.2-4.8); NEUTROPHILS % (AUTO) 72.9 % (42.0-75.0); PLATELET COUNT 216 X10^3/uL (150.0-450.0); RED BLOOD COUNT 4.12 X10^6/uL (4.7-6.0); RED CELL DISTRIBUTION WIDTH 14.1 % (11.6-16.5); WHITE BLOOD COUNT 6.5 X10^3/uL (3.6-10.0)
[2020-08-01 06:31] LABS: ALANINE AMINOTRANSFERASE 21 Units/L (12-78); ALBUMIN 2.5 g/dL (3.4-5.0); ALKALINE PHOSPHATASE 82 Units/L (46-116); ASPARTATE AMINO TRANSFERASE 35 Units/L (15-37); BLOOD UREA NITROGEN 8 mg/dL (7-18); CALCIUM 7.8 mg/dL (8.5-10.1); CARBON DIOXIDE 28.6 mmol/L (21-32); CHLORIDE 90 mmol/L (98-107); CREATININE 0.51 mg/dL (0.70-1.30); MAGNESIUM 1.4 mg/dL (1.7-2.9); SODIUM 127 mmol/L (136-145); TOTAL PROTEIN 5.9 g/dL (6.4-8.2); eGFR NON BLACK RACES > 60 (>60)
[2020-08-01] MEDS: DUONEB 0.5 MG/3 MG (3 mL) NEB SCH ×4 (08:37→20:43)
[2020-08-01] MEDS: PULMICORT NEB TX 0.5 MG NEB SCH ×2 (08:37→20:43)
[2020-08-01] MEDS: LEVAQUIN PREMIX IV 500 MG 500 MG/100 ML BAG IV SCH (08:39)
[2020-08-01] MEDS: PROTONIX INJ 40 MG VIAL IVP SCH (08:46)
[2020-08-01] MEDS: LOVENOX INJ 30 MG SYR SC SCH ×2 (08:47→20:26)
[2020-08-01] MEDS: ZOLOFT PO SCH (08:48)
[2020-08-01] MEDS: MAGNESIUM SULFATE 1 GRAM/100 mL PREMIX 1 GM/100 ML BAG IV PRN ×3 (10:19→17:22)
--- NOTE | 2020-08-01 14:33 | RAD ---
HISTORYPNEUMONIA/COPDSTUDYCHEST, 1 [id number]/23/2021FINDINGSTriangular areas of opacity in the right lung base, and to a lesser e xtent the left lung base, are compatible with the pneumonia seen on the CTA chest 07/29/2020. The fin dings have progressed slightly since the chest x-ray 07/30/2020.No pleural effusion or pneumothorax.H eart size is normal.Bones are unremarkable.EKG leads are noted.IMPRESSION1. Progressed pneumoniaElect ronically signed by: Erick Herndon (Aug 01, 2020 14:31:51)
[2020-08-01] MEDS ORDERED: K-DUR TAB 20 MEQ PO SCH (19:00)
[2020-08-01] MEDS ORDERED: LASIX IVP SCH (19:00)
[2020-08-01] MEDS: LIBRIUM PO PRN (20:19)
[2020-08-01] MEDS: RESTORIL CAP 15 MG PO PRN (20:27)
[2020-08-02] MEDS: ROXICODONE TAB 5 MG PO PRN (01:33)
[2020-08-02] MEDS: CHRONULAC PO SCH ×3 (05:25→21:19)
[2020-08-02 06:23] LABS: HEPATITIS B SURFACE ANTIGEN Negative (Negative)
[2020-08-02 06:47] LABS: BASOPHILS # (AUTO) 0.1 X10^3/uL (0.0-0.1); BASOPHILS % (AUTO) 0.9 % (0.2-1.0); EOSINOPHILS # (AUTO) 0.3 x10^3/uL (0.0-0.2); EOSINOPHILS % (AUTO) 4.2 % (0.9-2.9); HEMATOCRIT 34.3 % (42.0-54.0); HEMOGLOBIN 11.6 g/dL (13.5-18.0); LYMPHOCYTES # (AUTO) 1.3 X10^3/uL (1.3-2.9); MEAN CORPUSCULAR HGB CONC 33.8 g/dL (33.0-35.0); MEAN CORPUSCULAR VOLUME 85.6 fL (80.0-100.0); MEAN PLATELET VOLUME 7.4 fL (7.4-11.0); MONOCYTES # (AUTO) 0.6 x10^3/uL (0.3-0.8); MONOCYTES % (AUTO) 10.4 % (0.0-13.0); NEUTROPHILS # (AUTO) 3.9 x10^3/uL (2.2-4.8); NEUTROPHILS % (AUTO) 63.5 % (42.0-75.0); PLATELET COUNT 237 X10^3/uL (150.0-450.0); RED CELL DISTRIBUTION WIDTH 14.1 % (11.6-16.5); WHITE BLOOD COUNT 6.2 X10^3/uL (3.6-10.0)
[2020-08-02 06:49] LABS: ALANINE AMINOTRANSFERASE 21 Units/L (12-78); ALBUMIN 2.5 g/dL (3.4-5.0); ALKALINE PHOSPHATASE 86 Units/L (46-116); ASPARTATE AMINO TRANSFERASE 30 Units/L (15-37); BLOOD UREA NITROGEN 6 mg/dL (7-18); CALCIUM 7.5 mg/dL (8.5-10.1); CARBON DIOXIDE 30.6 mmol/L (21-32); CHLORIDE 90 mmol/L (98-107); COR CA(FOR HYPOALB) 8.7 mg/dL (8.5-10.1); CREATININE 0.54 mg/dL (0.70-1.30); SODIUM 126 mmol/L (136-145); TOTAL PROTEIN 5.9 g/dL (6.4-8.2); eGFR NON BLACK RACES > 60 (>60)
[2020-08-02 06:56] LABS: MAGNESIUM 1.4 mg/dL (1.7-2.9)
[2020-08-02] MEDS: PULMICORT NEB TX 0.5 MG NEB SCH ×2 (08:30→20:40)
[2020-08-02] MEDS: DUONEB 0.5 MG/3 MG (3 mL) NEB SCH ×4 (08:30→20:40)
[2020-08-02] MEDS: MAGNESIUM SULFATE 1 GRAM/100 mL PREMIX 1 GM/100 ML BAG IV PRN ×2 (09:10→14:40)
[2020-08-02] MEDS: PROTONIX INJ 40 MG VIAL IVP SCH (09:10)
[2020-08-02] MEDS: K-DUR TAB 20 MEQ PO PRN (09:11)
[2020-08-02] MEDS: ZOLOFT PO SCH (09:11)
[2020-08-02] MEDS: LOVENOX INJ 30 MG SYR SC SCH ×2 (09:11→21:19)
[2020-08-02] MEDS: LIBRIUM PO PRN (09:11)
[2020-08-02] MEDS: NS + KCL 20 MEQ/L 1,000 ML IV SCH (10:22)
[2020-08-02 10:31] LABS: ABG ALLEN TEST POS; ABG BASE EXCESS 6.2 mmol/L (-2.0-2.0); ABG HCO3 29.5 mmol/L (22-26)
--- NOTE | 2020-08-02 10:58 | RAD ---
HISTORYPNEUMONIASTUDYCHEST, 1 [id number]/2021FINDINGSAbnormal opacity in the right lung base could be atelectasis or pneumonia. This has progressed since the prior study.The upper right lung in the left lung are clear.Heart size is normal.Bones are unremarkable.IMPRESSION1. Progressed right basilar pneumoniaElectronically signed by: Erick Herndon (Aug 02, 2020 10:56:41)
[2020-08-02] MEDS: LEVAQUIN PREMIX IV 500 MG 500 MG/100 ML BAG IV SCH (11:24)
[2020-08-02] MEDS: RESTORIL CAP 15 MG PO PRN (21:19)
[2020-08-02] MEDS: NEURONTIN CAP 100 MG PO PRN (21:19)
[2020-08-03] MEDS: NS + KCL 20 MEQ/L 1,000 ML IV SCH ×3 (02:40→21:25)
[2020-08-03] MEDS: ROXICODONE TAB 5 MG PO PRN ×2 (02:44→21:25)
[2020-08-03] MEDS: CHRONULAC PO SCH ×3 (05:49→21:25)
--- NOTE | 2020-08-03 06:58 | RAD ---
CHEST, 1 VIEWHISTORY: SOB, PNEUMONIAStudy: Single view of the chest.Comparison:08/02/2020Findings:The cardiomediastinal silhouette is normal.Right lung base opacity has improved. Osseous structures demonstrate no acute abnormality.IMPRESSION:1. Improvement of right lung base opacity.Electronically signed by: DRE VELA (Aug 03, 2020 06:56:28)
[2020-08-03 07:05] LABS: ALANINE AMINOTRANSFERASE 22 Units/L (12-78); ALBUMIN 2.5 g/dL (3.4-5.0); ALKALINE PHOSPHATASE 88 Units/L (46-116); ASPARTATE AMINO TRANSFERASE 31 Units/L (15-37); BLOOD UREA NITROGEN 8 mg/dL (7-18); CALCIUM 7.8 mg/dL (8.5-10.1); CARBON DIOXIDE 26.9 mmol/L (21-32); CHLORIDE 90 mmol/L (98-107); CREATININE 0.49 mg/dL (0.70-1.30); TOTAL PROTEIN 5.9 g/dL (6.4-8.2); eGFR NON BLACK RACES > 60 (>60)
[2020-08-03 07:20] LABS: SODIUM 125 mmol/L (136-145)
[2020-08-03 07:31] LABS: EOSINOPHILS # (AUTO) 0.2 x10^3/uL (0.0-0.2); MONOCYTES # (AUTO) 0.4 x10^3/uL (0.3-0.8)
[2020-08-03] MEDS: MAG-OX TAB PO SCH (08:35)
[2020-08-03] MEDS: LOVENOX INJ 30 MG SYR SC SCH ×2 (08:36→21:25)
[2020-08-03] MEDS: LEVAQUIN PREMIX IV 500 MG 500 MG/100 ML BAG IV SCH (08:36)
[2020-08-03] MEDS: PROTONIX INJ 40 MG VIAL IVP SCH (08:38)
[2020-08-03] MEDS: ZOLOFT PO SCH (08:38)
[2020-08-03 08:49] LABS: HEMATOCRIT 36.7 % (42.0-54.0); HEMOGLOBIN 12.5 g/dL (13.5-18.0); MEAN CORPUSCULAR HEMOGLOBIN 29.1 pg (27.0-34.0); MEAN CORPUSCULAR HGB CONC 34.1 g/dL (33.0-35.0); MEAN CORPUSCULAR VOLUME 85.5 fL (80.0-100.0); RED BLOOD COUNT 4.29 X10^6/uL (4.7-6.0); WHITE BLOOD COUNT 4.6 X10^3/uL (3.6-10.0)
[2020-08-03 08:50] LABS: BASOPHILS % (AUTO) 1.4 % (0.2-1.0); EOSINOPHILS % (AUTO) 3.5 % (0.9-2.9); LYMPHOCYTES % (AUTO) 19.8 % (21.0-51.0); MEAN PLATELET VOLUME 7.4 fL (7.4-11.0); MONOCYTES % (AUTO) 8.8 % (0.0-13.0); NEUTROPHILS % (AUTO) 66.5 % (42.0-75.0); PLATELET COUNT 173 X10^3/uL (150.0-450.0); RED CELL DISTRIBUTION WIDTH 14.1 % (11.6-16.5)
[2020-08-03 08:51] LABS: BASOPHILS # (AUTO) 0.1 X10^3/uL (0.0-0.1); LYMPHOCYTES # (AUTO) 0.9 X10^3/uL (1.3-2.9); NEUTROPHILS # (AUTO) 3.1 x10^3/uL (2.2-4.8)
[2020-08-03] MEDS: DUONEB 0.5 MG/3 MG (3 mL) NEB SCH ×4 (09:22→20:55)
[2020-08-03] MEDS: PULMICORT NEB TX 0.5 MG NEB SCH ×2 (09:22→20:55)
[2020-08-03 09:35] LABS: PLATELET MORPHOLOGY COMMENT NORMAL (NORMAL)
--- NOTE | 2020-08-03 11:00 | PCM.PROG ---
Progress Note - Progress Note for Day of Date of Exam: 08/03/20 - Subjective Subjective: Mr. Hussein is a 65-year-old white male patient of . He was admitted on 07/29/20with pneumonia confirmed on CT of the chest, as well as electrolyte imbalance due to endstage liver failure. The patient is on IV antibiotics. He is on deep vein thrombosis prophylaxis. The patients home medications were resumed, magnesium, potassium, and sodium replacement with strict I&Os. He is on withdrawal precautions. The patient states that he also worked pretty well with Therapy yesterday. He reports that he rested a little better throughout the night. The patient apparently agreed to nurses in the home, as well as physical therapy in the home on discharge. The patient refuses any rehabilitation placement. On examination, He has diffuse rhonchi. He was given a dose of Lasix yesterday. Abdomen is noted to be moderately distended. He does have bowel sounds present times all four quadrants. No rebound tenderness noted. The patient does have hepatomegaly. The patient has continued to be anxious. He is not combative. He is cooperative at this point. The patient has diffuse upper and lower extremity muscle atrophy and weakness. The patient is emaciated. His vitals this morning were 97.7-76-20-98%-119/62. Labs were obtained. Abnormal lab values include the following: RBC 4.29, HGB 12.5, HCT 36.7, D-DIMER 8.02, SODIUM 125, CHLORIDE 90, CREATININE 0.49, GLUCOSE 104, CALCIUM 7.8, TOTAL PROTEIN 5.9, ALBUMIN 2.5. chest CTA and venous dopplers were obtained to rule out PE. We will ontinue IV antibiotics, respiratory therapy, supplemental oxygen, anticoagulants, lactulose, alcohol withdrawal precautions, electrolyte replacement, and follow up with am labs, chest xray, and abg. TIME SPENT ON CLINICAL ASSESSMENT, REVIEWING LABS AND IMAGING, DECISION MAKING, AND DOCUMENTATION GREATER THAN 75 MINUTES. - Past Medical Family Social History Past Med/Fam/Surg Hx: No changes since H&P Allergies: Allergies cefuroxime [From Ceftin] Allergy (Mild, Verified 07/21/20 10:00) - Review of Systems ROS: No change since H&P - Vital Signs and I&O's Vital Signs: Temperature 97.7 F Pulse Rate [Right Brachial] 76 Pulse Rate 88 Respiratory Rate 20 Blood Pressure [Left Arm] 119/62 Blood Pressure [Right Arm] 121/76 Blood Pressure 139/84 O2 Sat by Pulse Oximetry 98 Intake and Output: Intake & Output 07/31/20 08/01/20 08/02/20 08/03/20 11:59 11:59 11:59 11:59 Intake Total 3467 / 3467 2981 / 2981 1180 / 1180 3130 / 3130 Output Total 1925 / 1925 3100 / 3100 3600 / 3600 900 / 900 Balance 1542 / 1542 -119 / -119 -2420 / -2420 2230 / 2230 - Physical Exam Oriented: Normal Eyes: Normal Ear: Normal Nose: Normal Throat: Normal Respiratory: Generalized, Diminished, Rhonchi Cardiovascular: Normal : Normal Auscultation: Bowel Sounds: Normal Palpation: Normal Tenderness: Other (moderate distention with tympanic mid and upper abdomen .. ascites lower abdomen .) Skin: Decreased Turgur, Wound (BILATERAL HEELS) Musculoskeletal: Back:Lumbar, Motor Deficit Psychiatric: Anxiety Mood Description: Anxious Affect: Anxious Speech Pattern: Clear, Appropriate - Laboratory and Diagnostics Result Diagrams: 08/03/20 08:15 08/03/20 05:58 Labs: 07/29/20 20:42 Sputum - Expectorated Sputum Sputum Culture - Final Acinetobacter Lwoffii 07/29/20 20:42 Sputum - Expectorated Sputum - Final 07/29/20 11:17 Blood Blood Culture - Preliminary 07/29/20 10:50 Blood Blood Culture - Preliminary Laboratory WBC 4.6 X10^3/uL (3.6-10.0) 08/03/20 08:15 RBC 4.29 X10^6/uL (4.7-6.0) L 08/03/20 08:15 Hgb 12.5 g/dL (13.5-18.0) L 08/03/20 08:15 Hct 36.7 % (42.0-54.0) L 08/03/20 08:15 MCV 85.5 fL (80.0-100.0) 08/03/20 08:15 MCH 29.1 pg (27.0-34.0) 08/03/20 08:15 MCHC 34.1 g/dL (33.0-35.0) 08/03/20 08:15 RDW 14.1 % (11.6-16.5) 08/03/20 08:15 Plt Count 173 X10^3/uL (150.0-450.0) 08/03/20 08:15 Plt Count Comment Adequate (ADEQUATE) 08/03/20 08:15 MPV 7.4 fL (7.4-11.0) 08/03/20 08:15 Neut % (Auto) 66.5 % (42.0-75.0) 08/03/20 08:15 Lymph % (Auto) 19.8 % (21.0-51.0) L 08/03/20 08:15 [place] % (Auto) 8.8 % (0.0-13.0) 08/03/20 08:15 Eos % (Auto) 3.5 % (0.9-2.9) H 08/03/20 08:15 Baso % (Auto) 1.4 % (0.2-1.0) H 08/03/20 08:15 Neut # (Auto) 3.1 x10^3/uL (2.2-4.8) 08/03/20 08:15 Lymph # (Auto) 0.9 X10^3/uL (1.3-2.9) L 08/03/20 08:15 [place] # (Auto) 0.4 x10^3/uL (0.3-0.8) 08/03/20 08:15 Eos # (Auto) 0.2 x10^3/uL (0.0-0.2) 08/03/20 08:15 Baso # (Auto) 0.1 X10^3/uL (0.0-0.1) 08/03/20 08:15 Absolute Nucleated RBC 0.1 /100WBC 08/03/20 08:15 Total Counted 100 08/03/20 08:15 Neutrophils % (Manual) 75 % (39-76) 08/03/20 08:15 Band Neutrophils % 1 % (0-10) 07/31/20 05:39 Lymphocytes % (Manual) 22 % (13-43) 08/03/20 08:15 Monocytes % (Manual) 2 % (4-9) L 08/03/20 08:15 Eosinophils % (Manual) 1 % (0-6) 08/03/20 08:15 Plt Morphology Comment Normal (NORMAL) 08/03/20 08:15 RBC Morphology Normal (NORMAL) 08/03/20 08:15 PT 15.0 SECONDS (11.8-14.3) 07/31/20 05:39 INR Target Range - 07/31/20 05:39 INR 1.22 (0.8-1.3) 07/31/20 05:39 D-Dimer 8.02 ug/ml (0.0-0.57) H* 08/03/20 08:43 Sample Site Lra 08/02/20 10:28 ABG pH 7.510 (7.35-7.45) H 08/02/20 10:28 ABG pCO2 37.0 mmHg (35.0-45.0) 08/02/20 10:28 ABG pO2 61.0 mmHg (80.0-100.0) L 08/02/20 10:28 ABG HCO3 29.5 mmol/L (22-26) H 08/02/20 10:28 ABG O2 Saturation 93.0 % (90-100) 08/02/20 10:28 ABG Base Excess 6.2 mmol/L (-2.0-2.0) H 08/02/20 10:28 [place] Test Pos 08/02/20 10:28 A-a Gradient 42.0 mmHg 08/02/20 10:28 FiO2 21.0 08/02/20 10:28 Blood Gas Comments Pt nancy well eb 08/02/20 10:28 Sodium 125 mmol/L (136-145) L* 08/03/20 05:58 Corrected Sodium TNP 08/03/20 05:58 Potassium 3.9 mmol/L (3.5-5.1) 08/03/20 05:58 Chloride 90 mmol/L (98-107) L 08/03/20 05:58 Carbon Dioxide 26.9 mmol/L (21-32) 08/03/20 05:58 BUN 8 mg/dL (7-18) 08/03/20 05:58 Creatinine 0.49 mg/dL (0.70-1.30) L 08/03/20 05:58 Est GFR (MDRD) Af Amer > 60 (>60) 08/03/20 05:58 Est GFR (MDRD) Non-Af > 60 (>60) 08/03/20 05:58 Glucose 104 mg/dL (65-99) H 08/03/20 05:58 POC Glucose (mg/dL) 86 mg/dL (65-99) 08/01/20 17:12 Lactic Acid 1.6 mmol/L (0.4-2.0) 07/29/20 10:50 Calcium 7.8 mg/dL (8.5-10.1) L 08/03/20 05:58 Corrected Calcium 9.0 mg/dL (8.5-10.1) 08/03/20 05:58 Magnesium 1.4 mg/dL (1.7-2.9) L 08/02/20 06:05 Total Bilirubin 1.00 mg/dL (0.2-1.0) 08/03/20 05:58 AST 31 Units/L (15-37) 08/03/20 05:58 ALT 22 Units/L (12-78) 08/03/20 05:58 Alkaline Phosphatase 88 Units/L (46-116) 08/03/20 05:58 Ammonia 23 umol/L (11-32) 08/02/20 06:05 Troponin I < 0.02 ng/mL (0-1.5) 07/29/20 10:50 B-Natriuretic Peptide 160 pg/mL (0-79) H 07/31/20 05:39 Total Protein 5.9 g/dL (6.4-8.2) L 08/03/20 05:58 Albumin 2.5 g/dL (3.4-5.0) L 08/03/20 05:58 Globulin 3.4 g/dL (2.5-4.5) 08/03/20 05:58 Albumin/Globulin Ratio 0.7 Ratio (1.1-2.1) L 08/03/20 05:58 Amylase 35 Units/L (25-115) 07/29/20 10:50 Lipase 243 Units/L (73-393) 07/29/20 10:50 Specimen Type Catherized urine 07/29/20 13:10 Urine Color Dark yellow (YELLOW) 07/29/20 13:10 Urine Appearance Clear (CLEAR) 07/29/20 13:10 Urine pH 6.0 (5.0 - 8.0) 07/29/20 13:10 Ur Specific [place] 1.010 (1.000-1.030) 07/29/20 13:10 Urine Protein Negative (NEGATIVE) 07/29/20 13:10 Urine Glucose (UA) Negative (NEGATIVE) 07/29/20 13:10 Urine Ketones Negative (NEGATIVE) 07/29/20 13:10 Urine Occult Blood 1+ (NEGATIVE) 07/29/20 13:10 Urine Nitrite Negative (NEGATIVE) 07/29/20 13:10 Urine Bilirubin Negative (NEGATIVE) 07/29/20 13:10 Urine Urobilinogen 2+ (NORMAL) 07/29/20 13:10 Ur Leukocyte Esterase 1+ (NEGATIVE) 07/29/20 13:10 Urine RBC 0-2 /HPF (0-3) 07/29/20 13:10 Urine WBC 0-2 /HPF (0-5) 07/29/20 13:10 Ur Squamous Epith Cells Few /HPF (NEGATIVE) 07/29/20 13:10 Amorphous Sediment 1+ /HPF (NEGATIVE) 07/29/20 13:10 Urine Bacteria Trace /HPF (NEGATIVE) 07/29/20 13:10 Ur Culture Indicated? No/not indicated 07/29/20 13:10 Urine Opiates Screen Negative (NEG=<300) 07/29/20 13:10 Urine Methadone Screen Negative (NEG=<300) 07/29/20 13:10 Ur Barbiturates Screen Negative (NEG=<200) 07/29/20 13:10 Ur Phencyclidine Scrn Negative (NEG=<25) 07/29/20 13:10 Ur Amphetamines Screen Negative (NEG=<1000) 07/29/20 13:10 U Benzodiazepines Scrn Positive (NEG=<200) 07/29/20 13:10 Urine Cocaine Screen Negative (NEG=<300) 07/29/20 13:10 U Marijuana (THC) Screen Negative (NEG=<50) 07/29/20 13:10 Ethyl Alcohol mg/dL < 3 mg/dL (0-19.9) 07/29/20 10:50 Hepatitis A IgM Ab Negative (Negative) 07/29/20 10:50 Hep Bs Antigen Negative (Negative) 07/29/20 10:50 Hep Bs Ag Confirmation TNP 07/29/20 10:50 Hep B Core IgM Ab Negative (Negative) 07/29/20 10:50 Hepatitis C Ab Index <0.02 IV 07/29/20 10:50 Hepatitis C Interp Negative (Negative) 07/29/20 10:50 Hepatitis Interpret See note 07/29/20 10:50 SARS CoV-2 RNA Rapid ZOË Negative (NEGATIVE) 07/29/20 11:27 - Plan (1) Pneumonia Status: Acute Qualifiers: Pneumonia type: due to other aerobic Gram-negative bacteria Laterality: unspecified laterality Lung location: unspecified part of lung Qualified Code(s): J15.6 - Pneumonia due to other Gram-negative bacteria Plan: RESP THERAPY. SPUTUM CULTURE, IV ATBX. IV HYDRATION, WITHDRAWAL PRECAUTIONS. POTASSIUM, SODIUM REPLACEMENT, AMMONIA LEVEL. STRICT I &OS (2) Acute hypokalemia Status: Acute Plan: POTASSIUM PROTOCOL (3) Acute hyponatremia Status: Acute (4) End-stage liver disease Status: Chronic (5) CHF (congestive heart failure) Status: Chronic Qualifiers: Heart failure type: unspecified Heart failure chronicity: unspecified [place] lified Code(s): I50.9 - Heart failure, unspecified
[2020-08-03] MEDS: RESTORIL CAP 15 MG PO PRN (21:25)
[2020-08-03] MEDS: NEURONTIN CAP 100 MG PO PRN (21:25)
[2020-08-04] MEDS ORDERED: MAALOX or MYLANTA PO PRN (00:56)
[2020-08-04] MEDS: CHRONULAC PO SCH ×3 (06:15→23:55)
[2020-08-04] MEDS: MAG-OX TAB PO SCH (06:15)
[2020-08-04 06:54] LABS: BASOPHILS # (AUTO) 0.1 X10^3/uL (0.0-0.1); BASOPHILS % (AUTO) 1.5 % (0.2-1.0); EOSINOPHILS # (AUTO) 0.1 x10^3/uL (0.0-0.2); EOSINOPHILS % (AUTO) 2.9 % (0.9-2.9); HEMATOCRIT 34.4 % (42.0-54.0); HEMOGLOBIN 11.8 g/dL (13.5-18.0); LYMPHOCYTES # (AUTO) 0.9 X10^3/uL (1.3-2.9); LYMPHOCYTES % (AUTO) 19.1 % (21.0-51.0); MEAN CORPUSCULAR HGB CONC 34.1 g/dL (33.0-35.0); MEAN PLATELET VOLUME 7.8 fL (7.4-11.0); MONOCYTES # (AUTO) 0.5 x10^3/uL (0.3-0.8); MONOCYTES % (AUTO) 10.5 % (0.0-13.0); PLATELET COUNT 264 X10^3/uL (150.0-450.0); RED BLOOD COUNT 4.05 X10^6/uL (4.7-6.0); RED CELL DISTRIBUTION WIDTH 13.9 % (11.6-16.5); WHITE BLOOD COUNT 4.5 X10^3/uL (3.6-10.0)
[2020-08-04 07:07] LABS: ALANINE AMINOTRANSFERASE 23 Units/L (12-78); ALBUMIN 2.6 g/dL (3.4-5.0); ALKALINE PHOSPHATASE 98 Units/L (46-116); ASPARTATE AMINO TRANSFERASE 29 Units/L (15-37); BLOOD UREA NITROGEN 6 mg/dL (7-18); CALCIUM 8.2 mg/dL (8.5-10.1); CARBON DIOXIDE 28.2 mmol/L (21-32); CHLORIDE 92 mmol/L (98-107); COR CA(FOR HYPOALB) 9.3 mg/dL (8.5-10.1); CREATININE 0.49 mg/dL (0.70-1.30); SODIUM 127 mmol/L (136-145); TOTAL PROTEIN 6.3 g/dL (6.4-8.2); eGFR NON BLACK RACES > 60 (>60)
--- NOTE | 2020-08-04 07:16 | RAD ---
HISTORYSOB pneumoniaSTUDYAP chestCOMPARISONFebruary 2020FINDINGSNormal heart size and contour. The left lung remains clear. There is persistent but improving infiltrate/atelectasis in the medial right base. No new abnormality is noted.IMPRESSIONFurther interval improvement in the right basal infiltrate or atelectasis. No new areas of involvement are demonstrated.Electronically signed by: GAMA DOYLE (Aug 04, 2020 07:13:53)
[2020-08-04] MEDS: PULMICORT NEB TX 0.5 MG NEB SCH ×2 (08:16→20:53)
[2020-08-04] MEDS: DUONEB 0.5 MG/3 MG (3 mL) NEB SCH ×4 (08:16→20:53)
[2020-08-04] MEDS: LOVENOX INJ 30 MG SYR SC SCH ×2 (09:11→21:25)
[2020-08-04] MEDS: PROTONIX INJ 40 MG VIAL IVP SCH (09:22)
[2020-08-04] MEDS: LEVAQUIN PREMIX IV 500 MG 500 MG/100 ML BAG IV SCH (09:22)
[2020-08-04] MEDS: K-DUR TAB 20 MEQ PO PRN (09:22)
[2020-08-04] MEDS: ZOLOFT PO SCH (09:22)
[2020-08-04] MEDS: NS + KCL 20 MEQ/L 1,000 ML IV SCH ×2 (09:22→18:33)
[2020-08-04] MEDS: LIBRIUM PO PRN (09:23)
--- NOTE | 2020-08-04 13:21 | PCM.PROG ---
Progress Note - Progress Note for Day of Date of Exam: 08/04/20 - Subjective Subjective: Mr. Hussein is a 65-year-old white male patient of . He was admitted on 07/29/20with pneumonia confirmed on CT of the chest, as well as electrolyte imbalance due to endstage liver failure. The patient is on IV antibiotics. He is on deep vein thrombosis prophylaxis. The patients home medications were resumed, magnesium, potassium, and sodium replacement with strict I&Os. He is on withdrawal precautions. The patient states that he also worked pretty well with Therapy yesterday. He reports that he rested a little better throughout the night. The patient apparently agreed to nurses in the home, as well as physical therapy in the home on discharge. The patient refuses any rehabilitation placement. On examination, He has diffuse rhonchi. Abdomen is noted to be distended, however, slightly improved since yesterday. He does have bowel sounds present times all four quadrants. No rebound tenderness noted. The patient does have hepatomegaly. The patient has continued to be anxious. He is not combative. He is cooperative at this point. The patient has diffuse upper and lower extremity muscle atrophy and weakness. The patient is emaciated. His vitals this morning were 97.7-72-20-100%-127/67. Labs were obtained. Abnormal lab values include the following: RBC 4.05, hgb 11.8, hct 34.4, d-dimer 8.02, sodium 127, chloride 92, bun 6, creatinine 0.49, glucose 104, calcium 8.2, total bili 1.20, total protein 6.3, albumin 2.5. todays chest xray revealed: Further interval improvement in the right basal infiltrate or atelectasis. No new areas of involvement are demonstrated. We will continue IV antibiotics, respiratory therapy, supplemental oxygen, anticoagulants, lactulose, alcohol withdrawal precautions, electrolyte replacement, and follow up with am labs, chest xray, and abg. TIME SPENT ON CLINICAL ASSESSMENT, REVIEWING LABS AND IMAGING, DECISION MAKING, AND DOCUMENTATION GREATER THAN 75 MINUTES. - Past Medical Family Social History Past Med/Fam/Surg Hx: No changes since H&P Allergies: Allergies cefuroxime [From Ceftin] Allergy (Mild, Verified 07/21/20 10:00) - Review of Systems ROS: No change since H&P - Vital Signs and I&O's Vital Signs: Temperature 97.7 F Pulse Rate [Right Brachial] 72 Pulse Rate 82 Respiratory Rate 20 Blood Pressure [Left Arm] 111/70 Blood Pressure [Right Arm] 121/76 Blood Pressure 139/84 O2 Sat by Pulse Oximetry 99 Intake and Output: Intake & Output 08/02/20 08/03/20 08/04/20 08/05/20 11:59 11:59 11:59 11:59 Intake Total 1180 / 1180 3130 / 3130 1855 / 1855 Output Total 3600 / 3600 900 / 900 500 / 500 Balance -2420 / -2420 2230 / 2230 1355 / 1355 - Physical Exam Oriented: Normal Eyes: Normal Ear: Normal Nose: Normal Throat: Normal Respiratory: Generalized, Diminished, Rhonchi Cardiovascular: Normal : Normal Auscultation: Bowel Sounds: Normal Tenderness: Other (moderate distention with tympanic mid and upper abdomen .. ascites lower abdomen .) Skin: Decreased Turgur, Wound (BILATERAL HEELS) Musculoskeletal: Back:Lumbar, Motor Deficit Psychiatric: Anxiety Mood Description: Anxious Affect: Anxious Speech Pattern: Clear, Appropriate - Laboratory and Diagnostics Result Diagrams: 08/04/20 05:16 08/04/20 05:16 Labs: 07/29/20 11:17 Blood Blood Culture - Final 07/29/20 10:50 Blood Blood Culture - Final 07/29/20 20:42 Sputum - Expectorated Sputum Sputum Culture - Final Acinetobacter Lwoffii 07/29/20 20:42 Sputum - Expectorated Sputum - Final Laboratory WBC 4.5 X10^3/uL (3.6-10.0) 08/04/20 05:16 RBC 4.05 X10^6/uL (4.7-6.0) L 08/04/20 05:16 Hgb 11.8 g/dL (13.5-18.0) L 08/04/20 05:16 Hct 34.4 % (42.0-54.0) L 08/04/20 05:16 MCV 85.0 fL (80.0-100.0) 08/04/20 05:16 MCH 29.0 pg (27.0-34.0) 08/04/20 05:16 MCHC 34.1 g/dL (33.0-35.0) 08/04/20 05:16 RDW 13.9 % (11.6-16.5) 08/04/20 05:16 Plt Count 264 X10^3/uL (150.0-450.0) 08/04/20 05:16 Plt Count Comment Adequate (ADEQUATE) 08/03/20 08:15 MPV 7.8 fL (7.4-11.0) 08/04/20 05:16 Neut % (Auto) 66.0 % (42.0-75.0) 08/04/20 05:16 Lymph % (Auto) 19.1 % (21.0-51.0) L 08/04/20 05:16 Barton % (Auto) 10.5 % (0.0-13.0) 08/04/20 05:16 Eos % (Auto) 2.9 % (0.9-2.9) 08/04/20 05:16 Baso % (Auto) 1.5 % (0.2-1.0) H 08/04/20 05:16 Neut # (Auto) 3.0 x10^3/uL (2.2-4.8) 08/04/20 05:16 Lymph # (Auto) 0.9 X10^3/uL (1.3-2.9) L 08/04/20 05:16 Barton # (Auto) 0.5 x10^3/uL (0.3-0.8) 08/04/20 05:16 Eos # (Auto) 0.1 x10^3/uL (0.0-0.2) 08/04/20 05:16 Baso # (Auto) 0.1 X10^3/uL (0.0-0.1) 08/04/20 05:16 Absolute Nucleated RBC 0.2 /100WBC 08/04/20 05:16 Total Counted 100 08/03/20 08:15 Neutrophils % (Manual) 75 % (39-76) 08/03/20 08:15 Band Neutrophils % 1 % (0-10) 07/31/20 05:39 Lymphocytes % (Manual) 22 % (13-43) 08/03/20 08:15 Monocytes % (Manual) 2 % (4-9) L 08/03/20 08:15 Eosinophils % (Manual) 1 % (0-6) 08/03/20 08:15 Plt Morphology Comment Normal (NORMAL) 08/03/20 08:15 RBC Morphology Normal (NORMAL) 08/03/20 08:15 PT 15.0 SECONDS (11.8-14.3) 07/31/20 05:39 INR Target Range - 07/31/20 05:39 INR 1.22 (0.8-1.3) 07/31/20 05:39 D-Dimer 8.02 ug/ml (0.0-0.57) H* 08/03/20 08:43 Sample Site Lra 08/02/20 10:28 ABG pH 7.510 (7.35-7.45) H 08/02/20 10:28 ABG pCO2 37.0 mmHg (35.0-45.0) 08/02/20 10:28 ABG pO2 61.0 mmHg (80.0-100.0) L 08/02/20 10:28 ABG HCO3 29.5 mmol/L (22-26) H 08/02/20 10:28 ABG O2 Saturation 93.0 % (90-100) 08/02/20 10:28 ABG Base Excess 6.2 mmol/L (-2.0-2.0) H 08/02/20 10:28 [place] Test Pos 08/02/20 10:28 A-a Gradient 42.0 mmHg 08/02/20 10:28 FiO2 21.0 08/02/20 10:28 Blood Gas Comments Pt nancy well eb 08/02/20 10:28 Sodium 127 mmol/L (136-145) L 08/04/20 05:16 Corrected Sodium TNP 08/04/20 05:16 Potassium 3.5 mmol/L (3.5-5.1) 08/04/20 05:16 Chloride 92 mmol/L (98-107) L 08/04/20 05:16 Carbon Dioxide 28.2 mmol/L (21-32) 08/04/20 05:16 BUN 6 mg/dL (7-18) L 08/04/20 05:16 Creatinine 0.49 mg/dL (0.70-1.30) L 08/04/20 05:16 Est GFR (MDRD) Af Amer > 60 (>60) 08/04/20 05:16 Est GFR (MDRD) Non-Af > 60 (>60) 08/04/20 05:16 Glucose 104 mg/dL (65-99) H 08/04/20 05:16 POC Glucose (mg/dL) 86 mg/dL (65-99) 08/01/20 17:12 Lactic Acid 1.6 mmol/L (0.4-2.0) 07/29/20 10:50 Calcium 8.2 mg/dL (8.5-10.1) L 08/04/20 05:16 Corrected Calcium 9.3 mg/dL (8.5-10.1) 08/04/20 05:16 Magnesium 1.4 mg/dL (1.7-2.9) L 08/02/20 06:05 Total Bilirubin 1.20 mg/dL (0.2-1.0) H 08/04/20 05:16 AST 29 Units/L (15-37) 08/04/20 05:16 ALT 23 Units/L (12-78) 08/04/20 05:16 Alkaline Phosphatase 98 Units/L (46-116) 08/04/20 05:16 Ammonia 23 umol/L (11-32) 08/02/20 06:05 Troponin I < 0.02 ng/mL (0-1.5) 07/29/20 10:50 B-Natriuretic Peptide 160 pg/mL (0-79) H 07/31/20 05:39 Total Protein 6.3 g/dL (6.4-8.2) L 08/04/20 05:16 Albumin 2.6 g/dL (3.4-5.0) L 08/04/20 05:16 Globulin 3.7 g/dL (2.5-4.5) 08/04/20 05:16 Albumin/Globulin Ratio 0.7 Ratio (1.1-2.1) L 08/04/20 05:16 Amylase 35 Units/L (25-115) 07/29/20 10:50 Lipase 243 Units/L (73-393) 07/29/20 10:50 Specimen Type Catherized urine 07/29/20 13:10 Urine Color Dark yellow (YELLOW) 07/29/20 13:10 Urine Appearance Clear (CLEAR) 07/29/20 13:10 Urine pH 6.0 (5.0 - 8.0) 07/29/20 13:10 Ur Specific Brethren 1.010 (1.000-1.030) 07/29/20 13:10 Urine Protein Negative (NEGATIVE) 07/29/20 13:10 Urine Glucose (UA) Negative (NEGATIVE) 07/29/20 13:10 Urine Ketones Negative (NEGATIVE) 07/29/20 13:10 Urine Occult Blood 1+ (NEGATIVE) 07/29/20 13:10 Urine Nitrite Negative (NEGATIVE) 07/29/20 13:10 Urine Bilirubin Negative (NEGATIVE) 07/29/20 13:10 Urine Urobilinogen 2+ (NORMAL) 07/29/20 13:10 Ur Leukocyte Esterase 1+ (NEGATIVE) 07/29/20 13:10 Urine RBC 0-2 /HPF (0-3) 07/29/20 13:10 Urine WBC 0-2 /HPF (0-5) 07/29/20 13:10 Ur Squamous Epith Cells Few /HPF (NEGATIVE) 07/29/20 13:10 Amorphous Sediment 1+ /HPF (NEGATIVE) 07/29/20 13:10 Urine Bacteria Trace /HPF (NEGATIVE) 07/29/20 13:10 Ur Culture Indicated? No/not indicated 07/29/20 13:10 Urine Opiates Screen Negative (NEG=<300) 07/29/20 13:10 Urine Methadone Screen Negative (NEG=<300) 07/29/20 13:10 Ur Barbiturates Screen Negative (NEG=<200) 07/29/20 13:10 Ur Phencyclidine Scrn Negative (NEG=<25) 07/29/20 13:10 Ur Amphetamines Screen Negative (NEG=<1000) 07/29/20 13:10 U Benzodiazepines Scrn Positive (NEG=<200) 07/29/20 13:10 Urine Cocaine Screen Negative (NEG=<300) 07/29/20 13:10 U Marijuana (THC) Screen Negative (NEG=<50) 07/29/20 13:10 Ethyl Alcohol mg/dL < 3 mg/dL (0-19.9) 07/29/20 10:50 Hepatitis A IgM Ab Negative (Negative) 07/29/20 10:50 Hep Bs Antigen Negative (Negative) 07/29/20 10:50 Hep Bs Ag Confirmation TNP 07/29/20 10:50 Hep B Core IgM Ab Negative (Negative) 07/29/20 10:50 Hepatitis C Ab Index <0.02 IV 07/29/20 10:50 Hepatitis C Interp Negative (Negative) 07/29/20 10:50 Hepatitis Interpret See note 07/29/20 10:50 SARS CoV-2 RNA Rapid ZOË Negative (NEGATIVE) 07/29/20 11:27 - Plan (1) Pneumonia Status: Acute Qualifiers: Pneumonia type: due to other aerobic Gram-negative bacteria Laterality: unspecified laterality Lung location: unspecified part of lung Qualified Code(s): J15.6 - Pneumonia due to other Gram-negative bacteria Plan: RESP THERAPY. SPUTUM CULTURE, IV ATBX. IV HYDRATION, WITHDRAWAL P RECAUTIONS. POTASSIUM, SODIUM REPLACEMENT, AMMONIA LEVEL. STRICT I &OS (2) Acute hypokalemia Status: Acute Plan: POTASSIUM PROTOCOL (3) Acute hyponatremia Status: Acute (4) End-stage liver disease Status: Chronic (5) CHF (congestive heart failure) Status: Chronic Qualifiers: Heart failure type: unspecified Heart failure chronicity: unspecified Qualified Code(s): I50.9 - Heart failure, unspecified
[2020-08-04] MEDS: PEPCID TAB 20 MG PO SCH ×3 (14:30→21:25)
[2020-08-04] MEDS: PHENERGAN INJ 25 MG IM PRN ×2 (15:04→21:52)
[2020-08-04] MEDS: ROXICODONE TAB 5 MG PO PRN (21:25)
[2020-08-04] MEDS: NEURONTIN CAP 100 MG PO PRN (21:25)
[2020-08-04] MEDS: RESTORIL CAP 15 MG PO PRN (21:25)
[2020-08-05] MEDS: CHRONULAC PO SCH ×3 (06:22→21:31)
--- NOTE | 2020-08-05 06:22 | RAD ---
HISTORYSOBSTUDYCHEST, 1 [id number]/2021FINDINGSThe trachea is midline. The cardiac silhouette is unremarkable. Mild right basilar subsegmental atelectasis and/or infiltrate. The remainder lungs are clear.. The bony thorax is unremarkable.IMPRESSIONStable portable chestElectronically signed by: Dev Georges (Aug 05, 2020 06:18:34)
[2020-08-05 06:54] LABS: BASOPHILS # (AUTO) 0.1 X10^3/uL (0.0-0.1); BASOPHILS % (AUTO) 1.2 % (0.2-1.0); EOSINOPHILS # (AUTO) 0.1 x10^3/uL (0.0-0.2); EOSINOPHILS % (AUTO) 1.5 % (0.9-2.9); HEMATOCRIT 35.2 % (42.0-54.0); HEMOGLOBIN 11.8 g/dL (13.5-18.0); LYMPHOCYTES % (AUTO) 17.7 % (21.0-51.0); MEAN CORPUSCULAR HEMOGLOBIN 28.8 pg (27.0-34.0); MEAN CORPUSCULAR HGB CONC 33.6 g/dL (33.0-35.0); MEAN CORPUSCULAR VOLUME 85.7 fL (80.0-100.0); MEAN PLATELET VOLUME 7.6 fL (7.4-11.0); MONOCYTES # (AUTO) 0.4 x10^3/uL (0.3-0.8); NEUTROPHILS % (AUTO) 71.6 % (42.0-75.0); PLATELET COUNT 281 X10^3/uL (150.0-450.0); RED CELL DISTRIBUTION WIDTH 14.1 % (11.6-16.5); WHITE BLOOD COUNT 5.5 X10^3/uL (3.6-10.0)
[2020-08-05 07:28] LABS: ALANINE AMINOTRANSFERASE 21 Units/L (12-78); ALBUMIN 2.6 g/dL (3.4-5.0); ALKALINE PHOSPHATASE 95 Units/L (46-116); ASPARTATE AMINO TRANSFERASE 31 Units/L (15-37); BLOOD UREA NITROGEN 9 mg/dL (7-18); CALCIUM 8.1 mg/dL (8.5-10.1); CARBON DIOXIDE 25.5 mmol/L (21-32); CHLORIDE 92 mmol/L (98-107); COR CA(FOR HYPOALB) 9.2 mg/dL (8.5-10.1); CREATININE 0.56 mg/dL (0.70-1.30); SODIUM 126 mmol/L (136-145); TOTAL PROTEIN 6.3 g/dL (6.4-8.2); eGFR NON BLACK RACES > 60 (>60)
[2020-08-05] MEDS: LOVENOX INJ 30 MG SYR SC SCH ×2 (09:04→20:41)
[2020-08-05] MEDS: NS + KCL 20 MEQ/L 1,000 ML IV SCH (09:04)
[2020-08-05] MEDS: PROTONIX INJ 40 MG VIAL IVP SCH (09:04)
[2020-08-05] MEDS: LEVAQUIN PREMIX IV 500 MG 500 MG/100 ML BAG IV SCH (09:04)
[2020-08-05] MEDS: PULMICORT NEB TX 0.5 MG NEB SCH ×2 (09:18→20:15)
[2020-08-05] MEDS: DUONEB 0.5 MG/3 MG (3 mL) NEB SCH ×4 (09:19→20:15)
[2020-08-05] MEDS: ZOLOFT PO SCH ×2 (10:54→14:11)
[2020-08-05] MEDS: PEPCID TAB 20 MG PO SCH ×2 (10:54→20:42)
[2020-08-05] MEDS: MAG-OX TAB PO SCH (10:54)
[2020-08-05 13:55] LABS: MAGNESIUM 1.3 mg/dL (1.7-2.9)
[2020-08-05] MEDS: NEURONTIN CAP 100 MG PO PRN ×2 (14:11→20:42)
[2020-08-05] MEDS: K-DUR TAB 20 MEQ PO PRN (14:11)
[2020-08-05] MEDS: LIBRIUM PO PRN (14:11)
[2020-08-05] MEDS: MAGNESIUM SULFATE 1 GRAM/100 mL PREMIX 1 GM/100 ML BAG IV PRN ×4 (14:15→20:42)
[2020-08-06] MEDS: NS + KCL 20 MEQ/L 1,000 ML IV SCH ×2 (04:41→09:00)
--- NOTE | 2020-08-06 06:22 | RAD ---
HISTORYSOBSTUDYCHEST, 1 [id number]/2021.TECHNIQUEAP view of the chestFINDINGSPatient is rotated. Cardiac and mediastinal contours are within normal limits. Similar appearance of right base patchy opacities. No definite pleural effusion or pneumothorax. Background of emphysema.IMPRESSIONSimilar appearance of right base patchy opacity may represent atelectasis, aspiration or pneumonia.Electronically signed by: Jeffrey Garrett (Aug 06, 2020 06:20:50)
[2020-08-06 06:34] LABS: BASOPHILS # (AUTO) 0.1 X10^3/uL (0.0-0.1); BASOPHILS % (AUTO) 1.2 % (0.2-1.0); EOSINOPHILS # (AUTO) 0.1 x10^3/uL (0.0-0.2); EOSINOPHILS % (AUTO) 1.7 % (0.9-2.9); HEMATOCRIT 35.4 % (42.0-54.0); HEMOGLOBIN 12.1 g/dL (13.5-18.0); LYMPHOCYTES # (AUTO) 0.8 X10^3/uL (1.3-2.9); LYMPHOCYTES % (AUTO) 14.9 % (21.0-51.0); MEAN CORPUSCULAR HEMOGLOBIN 29.2 pg (27.0-34.0); MEAN CORPUSCULAR HGB CONC 34.3 g/dL (33.0-35.0); MEAN CORPUSCULAR VOLUME 85.3 fL (80.0-100.0); MEAN PLATELET VOLUME 7.4 fL (7.4-11.0); MONOCYTES # (AUTO) 0.4 x10^3/uL (0.3-0.8); NEUTROPHILS # (AUTO) 3.7 x10^3/uL (2.2-4.8); NEUTROPHILS % (AUTO) 74.2 % (42.0-75.0); PLATELET COUNT 262 X10^3/uL (150.0-450.0); RED BLOOD COUNT 4.15 X10^6/uL (4.7-6.0); RED CELL DISTRIBUTION WIDTH 13.9 % (11.6-16.5)
[2020-08-06] MEDS: CHRONULAC PO SCH (06:46)
[2020-08-06 06:47] LABS: ALANINE AMINOTRANSFERASE 20 Units/L (12-78); ALBUMIN 2.6 g/dL (3.4-5.0); ALKALINE PHOSPHATASE 92 Units/L (46-116); ASPARTATE AMINO TRANSFERASE 25 Units/L (15-37); BLOOD UREA NITROGEN 6 mg/dL (7-18); CALCIUM 8.2 mg/dL (8.5-10.1); CARBON DIOXIDE 27.4 mmol/L (21-32); CHLORIDE 96 mmol/L (98-107); COR CA(FOR HYPOALB) 9.3 mg/dL (8.5-10.1); CREATININE 0.47 mg/dL (0.70-1.30); MAGNESIUM 1.9 mg/dL (1.7-2.9); SODIUM 130 mmol/L (136-145); TOTAL PROTEIN 6.4 g/dL (6.4-8.2); eGFR NON BLACK RACES > 60 (>60)
[2020-08-06] MEDS ORDERED: MAG-OX TAB PO SCH (07:00)
[2020-08-06] MEDS: LEVAQUIN PREMIX IV 500 MG 500 MG/100 ML BAG IV SCH (08:52)
[2020-08-06] MEDS: PROTONIX INJ 40 MG VIAL IVP SCH (08:53)
[2020-08-06] MEDS: PEPCID TAB 20 MG PO SCH (08:53)
[2020-08-06] MEDS: NEURONTIN CAP 100 MG PO PRN (08:53)
[2020-08-06] MEDS: LOVENOX INJ 30 MG SYR SC SCH (08:53)
[2020-08-06] MEDS: LIBRIUM PO PRN (08:53)
[2020-08-06] MEDS: ZOLOFT PO SCH (08:53)
[2020-08-06] MEDS: DUONEB 0.5 MG/3 MG (3 mL) NEB SCH ×2 (09:15→13:20)
[2020-08-06] MEDS: PULMICORT NEB TX 0.5 MG NEB SCH (09:15)
[2020-08-06 12:00] VITALS: BP 109/73
== END 2020-08-06 13:35 | disposition home health service (06) | DRG 178 ==
LOC: ER 10:22 → MED/SURG 15:28
PROVIDERS: ADMIT Internal Medicine; ATTEND Internal Medicine
DX: E87.1 Hypo-osmolality and hyponatremia; F10.20 Alcohol dependence, uncomplicated; R94.31 Abnormal electrocardiogram [ECG] [EKG]; K70.40 Alcoholic hepatic failure without coma; I50.9 Heart failure, unspecified; Z20.822 Contact with and (suspected) exposure to COVID-19; K70.31 Alcoholic cirrhosis of liver with ascites; R53.1 Weakness; E87.6 Hypokalemia; E86.0 Dehydration; R26.89 Other abnormalities of gait and mobility; R06.02 Shortness of breath; J15.6 Pneumonia due to other Gram-negative bacteria; J44.1 Chronic obstructive pulmonary disease with (acute) exacerbation